=== PATIENT | male | born 1950 | race Caucasian/White ===

== ENCOUNTER → 2016-03-31 | Day surgery (SDC) | payer OTHER ==
[~2016-03-31] MED LIST: BUPIVACAINE/EPINEPHRINE 0.25% PF 30 ML VIAL ONE; KETOROLAC TROMETHAMINE 30 MG/ML (IVP) VIAL IV PUSH ONE; LACTATED RINGER'S 1000 ML INJ 1,000 ML ONE; LIDOCAINE 1%/EPINEPHrine 1:100,000 SOLN 20 ML VIAL ONE; MIDAZOLAM HCL 2 MG/2 ML VIAL ONE; ONDANSETRON HCL 4 MG/2 ML VIAL IV PUSH ONE; PROPOFOL 200 MG/20 ML AMP IV ONE; ceFAZolin 2 GM PREMIX 50 ML ONE
--- NOTE | 2016-03-31 16:19 | TN ---
cc: SASHA MCKOY M.D. DATE OF SURGERY 03/31/2016 PREOPERATIVE DIAGNOSIS Left side inguinoscrotal hernia. POSTOPERATIVE DIAGNOSIS Left side inguinoscrotal hernia. PROCEDURE Open repair left inguinal hernia with mesh. SURGEON Dr. Sasha Mckoy. LARD MIXER AFTAB [place] ANESTHESIA General. INDICATIONS This is a pleasant 65-year-old gentleman who has seen me on two occasions preoperatively related to the left inguinal hernia. He has had increasing symptoms and is desirous of operative repair. INTRAOPERATIVE FINDINGS Left indirect inguinal hernia. Small spermatic cord lipoma. ESTIMATED BLOOD LOSS Less than 5 ml. PROCEDURE IN DETAIL The patient identified as Van Singh, taken to the operating room and placed in supine position. Sequential compression devices were placed on bilateral lower extremities. Following induction of adequate general anesthesia the left groin was prepped and draped in usual sterile fashion with Betadine. Proposed left groin incision was made with a marking pen. A time-out procedure was performed. Following completion of time-out procedure to everyone's satisfaction within the room 0.25% Marcaine with epinephrine was placed along the proposed incision line and for a left groin field block. The incision was carried out with scalpel and hemostasis controlled with electrocautery. Dissection continued posteriorly through Shoshana fascia to level of the external oblique fascia. More local anesthetic was placed beneath the external oblique fascial fibers and they were opened in direction using a scalpel and Metzenbaum scissor. The spermatic cord and its contents were gently from surrounding tissues at the level of the pubic tubercle and isolated with a Abraham drain. The anteromedial surface was examined. There was an obvious indirect inguinal hernia sac which was from surrounding tissues at the level of the internal inguinal ring. The sac was opened and there were no incarcerated contents. It was suture-ligated space with 2-0 Vicryl suture ligature and redundant sac amputated with electrocautery and discarded. Along the posterior lateral surface there was a small spermatic cord lipoma which was from surrounding tissues at the level of the internal inguinal ring, cross clamped with a hemostat. Redundant fatty tissue amputated and discarded and the base was suture ligated with 2-0 Vicryl suture ligature. The inguinal floor was examined and appeared fairly taut, it was irrigated. There was no evidence of bleeding. Mesh was placed using a piece of Atrium ProLite mesh cut from a 3 x 6 inch piece customized to size. This was placed on the inguinal floor with interrupted 0 Ethilon sutures placed above and below the pubic tubercle and the Marcello's ligament shelving edge of the inguinal ligament and careful placement of the suture superior medially in the internal oblique fascia was performed. A slit was cut into the lateral mesh to allow for passage of spermatic cord. Tails were tucked beneath the external oblique fascia and a single suture was placed lateral to the spermatic cord so as not to strangulate the spermatic cord. The wound was irrigated with saline. There was no evidence of bleeding. Remaining local anesthetic was placed in and around the cord structures and in the operative field. The external oblique fascia was then closed with running 2-0 Vicryl suture taking care not to disturb the underlying ilioinguinal nerve branch. A single 2-0 Vicryl was placed in Shoshana fascia. Skin was approximated with running 4-0 Monocryl subcuticular suture. Dressings were applied with Mastisol, one-half inch brown Steri-Strips, gauze and Tegaderm. The patient tolerated procedure without apparent complication. Sponge, needle and instrument counts were correct at the end of the case. The surgical procedure was assisted by my nurse practitioner. My SLUBBER TENDER presence was necessary throughout the case for appropriate exposure and excellent care. My SLUBBER TENDER was assisting me throughout the duration of the procedure. Her skill set was medically necessary to complete the procedure. During the case microbiology technician was working at the back table providing appropriate instrumentation and the nurse practitioner was directly assisting me. MD BECKY Coleman/LAYNE /3:40 PM /3:53 PM
== END | disposition home or self-care (01) ==
LOC: ESDC 13:10
PROVIDERS: ATTEND Surgery Trauma Surgery
DX: K40.90 Unilateral inguinal hernia, without obstruction or gangrene, not specified as recurrent (principal)
CPT/HCPCS: 00830; 49505; C1781; J0690; J1885; J2250; J2405; J7120